=== PATIENT | female | born 1970 | race Hispanic/Latino ===

== ENCOUNTER → 2017-12-18 | Outpatient (CLI) | payer OTHER ==
[~2017-12-18] MED LIST: ATEN50TA PO; GADOBENATE DIMEGLUMINE 10 ML IV ONE; IOPAMIDOL 10 ML VIAL ONE; LIDOCAINE HCL 1% 20 ML VIAL ONE
== END | disposition home or self-care (01) ==
LOC: RAH 07:55
PROVIDERS: ATTEND Physical Medicine & Rehabilitation
DX: M25.552 Pain in left hip (principal)
CPT/HCPCS: 73525; 73723; A9577; Q9966 ×2

== ENCOUNTER 2024-09-10 06:41 | Day surgery (SDC) | payer BC ==
[~2024-09-10] VITALS: Ht 170.2 cm; Wt 84.8 kg
[2024-09-10] VITALS (9 sets, daily range): BP systolic 117–144; BP diastolic 60–89; PULSE 80–93; RESP 14–18; TEMP 96.6–97.9
[~2024-09-10 06:41] MED LIST changes: +CYAN-35 PO; +GABA-529 PO; -GADOBENATE DIMEGLUMINE 10 ML IV ONE; -IOPAMIDOL 10 ML VIAL ONE; +LEVO125C4 PO; -LIDOCAINE HCL 1% 20 ML VIAL ONE; +POTA-200 PO
[2024-09-10] MEDS: 0.9%NACL 1000ML 1,000 ML IV ONE (07:52)
[2024-09-10] MEDS ORDERED: proPOFol 10 MG/ML 20ML VIAL IV ONE (09:13)
== END 2024-09-10 10:31 | disposition home or self-care (01) ==
LOC: ENDO 06:41 → DAH 06:41 → ENDO 10:31
PROVIDERS: ATTEND Internal Medicine Gastroenterology
DX: K70.30 Alcoholic cirrhosis of liver without ascites (principal); I85.10 Secondary esophageal varices without bleeding; K29.70 Gastritis, unspecified, without bleeding; B96.81 Helicobacter pylori [H. pylori] as the cause of diseases classified elsewhere; K76.6 Portal hypertension; K31.89 Other diseases of stomach and duodenum; E78.5 Hyperlipidemia, unspecified; E03.9 Hypothyroidism, unspecified; D64.9 Anemia, unspecified; E66.9 Obesity, unspecified; R77.2 Abnormality of alphafetoprotein; Z79.899 Other long term (current) drug therapy
CPT/HCPCS: 81025; 43244; 43239; J7030 ×2; J2704; A4620; A4215; A4223; A7002; A4222; A4221; A4663; A4606; J3490